=== PATIENT | female | born 2005 | race African-American/Black ===

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

== ENCOUNTER 2023-11-09 10:45 | Emergency (ER) | payer OTHER ==
[2023-11-09 12:07] LABS: SARS-CoV-2 E Target Negative; SARS-CoV-2 N2 Target Negative; SARS-CoV-2 NAA Rapid Test Not Detected (NotDetected); SARS-CoV-2 RdRP gene Negative
== END 2023-11-09 12:23 | disposition home or self-care (01) ==
LOC: ERS 10:45
DX: J06.9 Acute upper respiratory infection, unspecified (principal)
CPT/HCPCS: 87081; 87430; 99283; U0002

== ENCOUNTER 2024-02-12 23:05 | Emergency (ER) | payer OTHER ==
[2024-02-12] MEDS ORDERED: Metoclopramide HCl 10 MG TAB ONE (23:58)
[2024-02-12] MEDS ORDERED: Acetaminophen 500 MG TAB ONE (23:58)
[2024-02-13 00:37] LABS: BHCG - Serum Negative (NEGATIVE); Pregs Control Background? CLEAR/WHITE (CLR/WHITE); Pregs Control Bar Appear? YES (CONTROL BAR)
[2024-02-13] MEDS ORDERED: Ketorolac Tromethamine 30 MG (1 mL) VIAL ONE (01:26)
[2024-02-13] MEDS ORDERED: Iopamidol-370 76% 500 ML MDV (1 ML CHARGE) ONE (15:28)
== END 2024-02-13 02:35 | disposition left against medical advice (07) ==
LOC: EEVIPCON 23:05 → ERS 23:05
DX: S09.90XA Unspecified injury of head, initial encounter (principal); M25.532 Pain in left wrist; M54.2 Cervicalgia; Y04.0XXA Assault by unarmed brawl or fight, initial encounter
CPT/HCPCS: 70450; 70498; 84703; 96374; J1885; Q9967

== ENCOUNTER 2024-02-15 18:29 | Emergency (ER) | payer OTHER | END 2024-02-15 19:58 | disposition home or self-care (01) | LOC: ERS 18:29 | DX: S09.90XA Unspecified injury of head, initial encounter (principal); R51.9 Headache, unspecified; Y04.0XXA Assault by unarmed brawl or fight, initial encounter | CPT/HCPCS: 99283 ==

== ENCOUNTER 2024-02-28 15:40 | Emergency (ER) | payer OTHER | END 2024-02-28 17:47 | disposition home or self-care (01) | LOC: ERS 15:40 | DX: R19.7 Diarrhea, unspecified (principal); R10.84 Generalized abdominal pain | CPT/HCPCS: 99283 ==

== ENCOUNTER 2024-04-05 07:03 | Emergency (ER) | payer OTHER | END 2024-04-05 07:28 | disposition home or self-care (01) | LOC: ERS 07:03 | DX: S61.212A Laceration without foreign body of right middle finger without damage to nail, initial encounter (principal); W26.0XXA Contact with knife, initial encounter | CPT/HCPCS: 99282 ==

== ENCOUNTER 2024-10-09 09:34 | Emergency (ER) | payer OTHER, SELFPAY ==
[2024-10-09] MEDS ORDERED: Ketorolac Tromethamine 30 MG (1 mL) VIAL ONE (09:55)
[2024-10-09 10:10] LABS: #Basophils 0.03 10x3/uL (0.0-0.2); #Eosinophils 0.19 10x3/uL (0.0-0.7); #Monocytes 0.24 10x3/uL (0.11-0.59); #Neutrophils 1.90 10x3/uL (1.40-6.50); %Basophils 0.7 % (0.0-1.0); %Eosinophils 4.4 % (0.0-10.0); %Lymphocytes 45.6 % (21.0-51.0); %Monocytes 5.5 % (0.0-10.0); %Neutrophils 43.8 % (42.0-75.0); Hematocrit 39.2 % (36.0-47.0); Hemoglobin 11.7 g/dL (12.0-16.0); Mean Corpuscular Hemoglobin 23.8 pg (27.0-31.0); Mean Corpuscular Volume 79.8 fL (78.0-98.0); Platelet Count 172 10x3/uL (130-400); Red Blood Cell (RBC) Count 4.91 mill/uL (4.20-5.40); White Blood Cell (WBC) Count 4.34 10x3/uL (4.8-10.8)
[2024-10-09 10:19] LABS: CAUTI Indications for Culture Dysuria,urgency,freq; Glucose, Urine (Dipstick) Normal (Negative); Leukocyte 25 Leu/uL (Negative); Protein, Urine (Dipstick) Negative (Neg-Trace); RBC/HPF 0-3 HPF (0-3); Specific Gravity, Urine 1.023 (1.002-1.036)
[2024-10-09 10:24] LABS: Bacteria/HPF 1+ HPF (None Seen); Urine Culture Reflex Yes Yes
[2024-10-09 10:25] LABS: Pregnancy Test - Urine (BHCG) Negative (Negative); Pregu Control Background? CLEAR/WHITE (CLR/WHITE); Pregu Control Bar Appear? YES (CONTROL BAR)
[2024-10-09 10:34] LABS: ALT (SGPT) Less than 7 U/L (Less than 34); AST (SGOT) 15 U/L (11-34); Albumin 4.0 g/dL (3.1-4.5); Alkaline Phosphatase 33 U/L (40-110); Anion Gap 16 mmol/L (10-20); BUN (Urea Nitrogen) 14 mg/dL (7.0-18.7); Bilirubin, Total 0.3 mg/dL (0.3-1.2); Calc. Creatinine Clearance 0 mL/min (70-130); Calcium 8.8 mg/dL (7.8-10.44); Carbon Dioxide 24 mmol/L (22-29); Globulin 2.8 g/dL (2.4-3.5); Glucose 83 mg/dL (70-105); Lipase 42 U/L (8-78); Potassium 3.9 mmol/L (3.5-5.1); Sodium 140 mmol/L (136-145)
[2024-10-09 10:39] LABS: Chloride 104 mmol/L (98-107)
[2024-10-09] MEDS ORDERED: Iopamidol-370 76% 500 ML MDV (1 ML CHARGE) ONE (16:04)
== END 2024-10-09 11:27 | disposition home or self-care (01) ==
LOC: ERS 09:34
DX: N39.0 Urinary tract infection, site not specified (principal)
CPT/HCPCS: 74177; 80053; 81001; 81025; 83690; 85025; 87077; 87086; 87186; 96374; J1885